=== PATIENT | female | born 1990 | race Two or more races ===

== ENCOUNTER 2019-03-26 18:47 | Emergency (ER) | payer BC ==
[~2019-03-26] VITALS: Ht 167.6 cm; Wt 122.0 kg
[2019-03-26 22:13] VITALS: BP 145/89
== END 2019-03-26 22:13 | disposition home or self-care (01) ==
LOC: ER 18:47
DX: S61.214A Laceration without foreign body of right ring finger without damage to nail, initial encounter (principal); W45.8XXA Other foreign body or object entering through skin, initial encounter; Y93.89 Activity, other specified; Y92.89 Other specified places as the place of occurrence of the external cause; Y99.8 Other external cause status
CPT/HCPCS: 12001; 99283; Z7610

== ENCOUNTER 2019-04-09 01:10 | Emergency (ER) | payer BC ==
[~2019-04-09] VITALS: Ht 167.6 cm; Wt 123.0 kg
[2019-04-09 01:30] VITALS: BP 135/85
== END 2019-04-09 05:53 | disposition home or self-care (01) ==
LOC: ER 01:10
DX: S61.218D Laceration without foreign body of other finger without damage to nail, subsequent encounter (principal); X58.XXXD Exposure to other specified factors, subsequent encounter; Z48.02 Encounter for removal of sutures
CPT/HCPCS: 99281; Z7610